=== PATIENT | male | born 1965 | race Caucasian/White ===

== ENCOUNTER 2019-03-16 06:51 | Day surgery (SDC) | payer BC, SELFPAY ==
[2019-03-15 15:38] VITALS: BMI 38.6
[2019-03-16 07:10] VITALS: BP 135/95; PULSE 63; RESP 18; TEMP 36.6; O2SAT 95
[2019-03-16] MEDS: sodium chloride 0.9% 1,000 ML 30 ML IV (07:28)
--- NOTE | 2019-03-16 07:35 | ANES.PREANES ---
Pre-Anesthetic Assessment Pre-Anesthetic Assessment: Height/Weight: Height 1.83 m Weight 129.274 kg Temp Pulse Resp BP Pulse Ox 97.8 F 63 18 135/95 95 03/16/19 07:10 03/16/19 07:10 03/16/19 07:10 03/16/19 07:10 03/16/19 07:10 Preop Diagnosis: Left dequervains Proposed Procedure: Operation Date: 03/16/19 08:00 Proposed Procedures p Dequervain Release(Left) - Anthony Dominguez MD Was Beta James taken within 24 hours: Yes Last intake: Intake Last Liquid Date 03/15/19 Last Liquid Time 21:00 Last Solid Date 03/15/19 Last Solid Time 21:00 Exam: Pre-Anes Outpt Exam: alert, oriented x 3, clear to auscultation bilaterally and regular rate & rhythm Airway: Submandibular: WNL Cervical ROM: WNL MP: 2 Additional comments: sleep apnea CV/HEM: CV/HEM: HTN Comments: rx'd 12 years GI: GI: GERD Comments: controlled with protonix, Barrettt's esophagus Metabolic: Metabolic: Thyroid Comments: replacement 5 years Musc/skel: Musc/skel: Lower Back Pain Comments: left radiculopathy Neuropsych: Neuropsych: Anxiety and Depression Meds/Allergies Current Medications: Current Medications Generic Name Dose Route Start Last Admin Trade Name Freq PRN Reason Stop Dose Admin Sodium Chloride 1,000 mls @ 30 ml s/hr 03/16/19 07:00 03/16/19 07:28 Sodium Chloride 0.9% IV 03/17/19 06:59 30 mls/hr .Q24H AYAKA Administration PFSH Anesthesia PFSH: Social History (Updated 03/15/19 @ 15:31 by Adriana Fonseca) Smoking and tobacco status: never smoked Data Anesthesia Cardiac Studies: No Data to Display
--- NOTE | 2019-03-16 07:55 | PM.HPUD ---
H&P update H&P Update: DATE OF SURGERY/PROCEDURE: 03/16/19 DATE H&P PERFORMED: 02/28/19 H&P UPDATE INFORMATION: H&P completed within last 30 days and No changes to prior documentation CHANGES TO PREVIOUS DOCUMENTATION: None PREOP DIAGNOSIS: De Quervain's tenosynovitis left wrist PRIMARY INDICATION FOR PROCEDURE: Left wrist pain with failure to improve after injections and splinting PLANNED PROCEDURE: Operation Date: 03/16/19 08:00 Proposed Procedures p Dequervain Release(Left) - Anthony Dominguez MD Full H&P Medications/Allergies: Current Medications: Current Medications Generic Name Dose Route Start Last Admin Trade Name Freq PRN Reason Stop Dose Admin Sodium Chloride 1,000 mls @ 30 ml s/hr 03/16/19 07:00 03/16/19 07:28 Sodium Chloride 0.9% IV 03/17/19 06:59 30 mls/hr .Q24H AYAKA Administration Perinent History: Social History: Social History Smoking and tobacco status: never smoked
--- NOTE | 2019-03-16 08:45 | PM.OP ---
Operative Report Date of procedure: 03/16/19 Pre-op Diagnosis: De Quervain's tenosynovitis left wrist Post-op diagnosis: same Post-op Findings: None Procedure Done: Release first extensor compartment left wrist Pathology: none sent Anesthesia: General Estimated blood loss (mL): 0 Tourniquet time (min): 14 Complications: None Findings: No abnormalities were seen within the first extensor compartment of the left wrist Brief History: The patient is a 53-year-old male with de Quervain's tenosynovitis. He failed splinting and injections with persistent pain. Surgical release was chosen to improve pain and function Procedure: The patient was taken to the operating room and given a general anesthesia. A timeout was performed. His left wrist and forearm were prepped and draped in the usual fashion. A transverse incision was made approximately 1.5 cm over the tip of the radial styloid. Dissection was carried down bluntly retracting branches of the radial nerve of volarly. The first extensor compartment of the wrist was exposed distally. Utilizing scissors central incision was made over the ligament freeing a prominent branch of the extensor pollicis brevis. This tendon was then retracted out of the sheath revealing 2 smaller branches of the abductor pollicis longus tendon which were similarly freed. No additional tendinous tunnels or aberrant tenderness branches were identified. The skin edges were infiltrated with 7 cc of 0.5% Marcaine and the skin closed with interrupted Prolene suture. Xeroflo gauze, 4 x 4 fluffs, web roll and an Wally wrap were applied.
[2019-03-16 08:53] VITALS: BP 156/101; PULSE 77; RESP 20; TEMP 37.6; O2SAT 93
[2019-03-16 09:00] VITALS: BP 124/87; PULSE 71; RESP 14; O2SAT 96
[2019-03-16 09:05] VITALS: BP 130/88; PULSE 68; RESP 18; TEMP 36.6; O2SAT 95
[2019-03-16 09:25] VITALS: BP 152/94; PULSE 75; RESP 18; O2SAT 92
[2019-03-16] MEDS: oxyCODONE 5 mg IR Tab/Cap PO (09:33)
[2019-03-16 09:46] VITALS: BP 147/93; PULSE 68; RESP 18; O2SAT 93
== END 2019-03-16 09:52 | disposition home or self-care (01) ==
PROVIDERS: Family Provider Nurse Practitioner Family; PCP Nurse Practitioner Family; Visit Provider Orthopaedic Surgery
PROC: (CPT 25000; principal; 2019-03-16 08:00)
DX: M65.4 Radial styloid tenosynovitis [de Quervain] (principal); Z79.1 Long term (current) use of non-steroidal anti-inflammatories (NSAID)
CPT/HCPCS: 25000; 12345; 96365; J0330; J0690; J2405; J2704; J3010; J3490; J7030

== ENCOUNTER → 2019-04-15 09:48 | Outpatient (BNVA) | payer BC, SELFPAY | PROVIDERS: Family Provider Nurse Practitioner Family; PCP Nurse Practitioner Family; Visit Provider Psychiatry & Neurology Psychiatry | DX: F33.9 Major depressive disorder, recurrent, unspecified (principal); G47.33 Obstructive sleep apnea (adult) (pediatric) | CPT/HCPCS: 99214 ==

== ENCOUNTER → 2019-05-05 11:35 | Outpatient (BNVA) | payer BC, SELFPAY | PROVIDERS: Family Provider Nurse Practitioner Family; PCP Nurse Practitioner Family; Visit Provider Nurse Practitioner Family | DX: J01.90 Acute sinusitis, unspecified (principal); I10 Essential (primary) hypertension; E03.9 Hypothyroidism, unspecified | CPT/HCPCS: 80053; 84443; 85025 ==

== ENCOUNTER → 2019-05-13 12:44 | Outpatient (BNVA) | payer BC, SELFPAY | PROVIDERS: Family Provider Nurse Practitioner Family; PCP Nurse Practitioner Family; Visit Provider Psychiatry & Neurology Psychiatry | DX: F33.0 Major depressive disorder, recurrent, mild (principal); G47.33 Obstructive sleep apnea (adult) (pediatric) | CPT/HCPCS: 99213 ==

== ENCOUNTER → 2019-07-08 07:32 | Outpatient (BNVA) | payer BC, SELFPAY | PROVIDERS: Family Provider Nurse Practitioner Family; PCP Nurse Practitioner Family; Visit Provider Psychiatry & Neurology Psychiatry | DX: F33.0 Major depressive disorder, recurrent, mild (principal); G47.33 Obstructive sleep apnea (adult) (pediatric) | CPT/HCPCS: 99213 ==

== ENCOUNTER → 2019-08-02 13:25 | Outpatient (BNVA) | payer BC, SELFPAY | PROVIDERS: Family Provider Nurse Practitioner Family; PCP Nurse Practitioner Family; Visit Provider Orthopaedic Surgery | DX: M25.469 Effusion, unspecified knee (principal); M25.569 Pain in unspecified knee | CPT/HCPCS: 80500; 84560; 89050 ==

== ENCOUNTER → 2019-08-03 07:25 | Outpatient (BNVA) | payer BC, SELFPAY | PROVIDERS: Family Provider Nurse Practitioner Family; PCP Nurse Practitioner Family; Visit Provider Psychiatry & Neurology Psychiatry | DX: F33.42 Major depressive disorder, recurrent, in full remission (principal) | CPT/HCPCS: 99213 ==

== ENCOUNTER → 2019-10-03 10:38 | Outpatient (BNVA) | payer BC, SELFPAY | PROVIDERS: Family Provider Nurse Practitioner Family; PCP Nurse Practitioner Family; Visit Provider Nurse Practitioner Family | DX: I10 Essential (primary) hypertension (principal); E78.2 Mixed hyperlipidemia; E03.9 Hypothyroidism, unspecified; E83.42 Hypomagnesemia; R11.0 Nausea; E16.2 Hypoglycemia, unspecified | CPT/HCPCS: 80053; 80061; 81003; 82306; 83036; 83735; 84443; 85025 ==

== ENCOUNTER → 2019-10-14 07:41 | Outpatient (BNVA) | payer BC, SELFPAY | PROVIDERS: Family Provider Nurse Practitioner Family; PCP Nurse Practitioner Family; Visit Provider Psychiatry & Neurology Psychiatry | DX: F33.42 Major depressive disorder, recurrent, in full remission (principal) | CPT/HCPCS: 99213 ==

== ENCOUNTER → 2019-10-25 09:58 | Outpatient (BNVA) | payer BC, SELFPAY | PROVIDERS: Family Provider Nurse Practitioner Family; PCP Nurse Practitioner Family; Visit Provider Nurse Practitioner Family | DX: Z20.828 Contact with and (suspected) exposure to other viral communicable diseases (principal) | CPT/HCPCS: 87635 ==

== ENCOUNTER → 2019-10-28 11:46 | Outpatient (BNVA) | payer BC, SELFPAY | PROVIDERS: Family Provider Nurse Practitioner Family; PCP Nurse Practitioner Family; Visit Provider Nurse Practitioner Family | DX: R53.83 Other fatigue (principal); R11.0 Nausea; Z12.5 Encounter for screening for malignant neoplasm of prostate; Z20.828 Contact with and (suspected) exposure to other viral communicable diseases; E03.9 Hypothyroidism, unspecified; R94.4 Abnormal results of kidney function studies; I10 Essential (primary) hypertension; E66.01 Morbid (severe) obesity due to excess calories; Z68.41 Body mass index [BMI] 40.0-44.9, adult | CPT/HCPCS: 80053; 83550; 84402; 84403; 86000; 86618; 86666; 86757; G0103 ==

== ENCOUNTER → 2019-12-09 16:39 | Outpatient (BNVA) | payer BC, SELFPAY | PROVIDERS: Family Provider Nurse Practitioner Family; PCP Nurse Practitioner Family; Visit Provider Nurse Practitioner Family | DX: S66.911A Strain of unspecified muscle, fascia and tendon at wrist and hand level, right hand, initial encounter (principal); X58.XXXA Exposure to other specified factors, initial encounter; R07.9 Chest pain, unspecified; R07.81 Pleurodynia | CPT/HCPCS: 71046; 73130 ==

== ENCOUNTER → 2019-12-23 07:30 | Outpatient (BNVA) | payer BC, SELFPAY | PROVIDERS: Family Provider Nurse Practitioner Family; PCP Nurse Practitioner Family; Visit Provider Psychiatry & Neurology Psychiatry | DX: F33.42 Major depressive disorder, recurrent, in full remission (principal); G47.33 Obstructive sleep apnea (adult) (pediatric) | CPT/HCPCS: 99213 ==

== ENCOUNTER → 2020-03-12 10:37 | Outpatient (BNVA) | payer BC, SELFPAY | PROVIDERS: Family Provider Nurse Practitioner Family; PCP Nurse Practitioner Family; Visit Provider Internal Medicine | DX: Z01.812 Encounter for preprocedural laboratory examination (principal); Z11.59 Encounter for screening for other viral diseases | CPT/HCPCS: 87635 ==

== ENCOUNTER 2020-03-16 09:06 | Day surgery (SDC) | payer BC, SELFPAY ==
[2020-03-16 09:20] VITALS: BP 138/96; PULSE 70; RESP 18; TEMP 36.1; O2SAT 97
--- NOTE | 2020-03-16 09:22 | P.HP_ITS ---
Same Day Surgery H&P Indication for Procedure/HPI DATE OF PROCEDURE: March 16, 2020 CHIEF COMPLAINT/INDICATIONFOR SURGICAL PROCEDURE: History of Armstrong's esophagus, and history of colon polyps. PREOP DIAGNOSIS: De Quervain's tenosynovitis left wrist PLANNED PROCEDRUE: Operation Date: 03/16/20 10:00 Proposed Procedures p EGD 30365 75771 K22.70 K63.5(Not Applicable) - Darrick Norman MD s Colonoscopy(Not Applicable) - Darrick Norman MD Medications/Allergies* Home Medications Medication Instructions Recorded Confirmed Type hydrochlorothiazide 12.5 mg capsule 12.5 mg PO QAM 02/28/19 03/16/20 History sumatriptan succinate 100 mg tablet 100 mg PO ONCE PRN 02/28/19 03/16/20 History Allergies/Adverse Reactions Allergy/AdvReac Type Severity Reaction Status Date / Time acetaminophen [From Lortab] Allergy ADR-Nausea Verified 02/21/20 09:03 codeine Allergy ADR-Nausea Verified 02/21/20 09:03 hydrocodone [From Lortab] Allergy ADR-Nausea Verified 02/21/20 09:03 nalbuphine [From Nubain] Allergy Unconscious Verified 02/21/20 09:03 sulfamethoxazole Allergy ADR-Nausea Verified 02/21/20 09:03 [From Bactrim] trimethoprim [From Bactrim] Allergy ADR-Nausea Verified 02/21/20 09:03 Pertinent History/Comorbid Conditions* Medical History (Updated 02/21/20 @ 09:48 by Darrick Norman MD) Barretts esophagus Last EGD August 2018 - to repeat in 3 years Chest pain Colon polyps Last Colonoscopy 2014, repeat in 5 years - Due 2020 Fatigue Hand strain Hypertension Hypomagnesemia Hypothyroid Mixed hyperlipidemia Morbid obesity with BMI of 40.0-44.9, adult Nausea Obstructive sleep apnea Osteoarthritis Prostate cancer screening Rib pain on right side [place] tick fever Sinusitis Tick bite Vitamin D deficiency Surgical History (Updated 10/31/19 @ 15:25 by HENRIETTA Osorio) H/O esophagogastroduodenoscopy EGD August 2018 repeat in 3 years (August 2021) H/O nasal sinusotomy Hx of cholecystectomy Social History Smoking and tobacco status: never smoked Alcohol intake: never Marital status: service: No History of recent travel: No Pertinent Exam Findings alert, oriented x 3, clear to auscultation bilaterally, regular rate & rhythm, operative site marked and procedure specific exam findings Recommendations Surgery/Procedure today Coding Level of Care Code Acute Vascular Ultrasound Technologist for Nicole Lowery
[2020-03-16] MEDS: sodium chloride 0.9% 1,000 ML 30 ML IV (09:30)
[2020-03-16 09:41] VITALS: BMI 43.6
--- NOTE | 2020-03-16 09:42 | ANES.PREANE2 ---
Pre-Anesthetic Assessment Pre-Anesthetic Assessment: Height/Weight: Height 1.8 m Weight 141.974 kg Temp Pulse Resp BP Pulse Ox 97 F L 70 18 138/96 97 03/16/20 09:20 03/16/20 09:20 03/16/20 09:20 03/16/20 09:20 03/16/20 09:20 Preop Diagnosis: nav's esophagus Proposed Procedure: Operation Date: 03/16/20 10:00 Proposed Procedures p EGD [id number] K22.70 K63.5(Not Applicable) - Darrick Norman MD s Colonoscopy(Not Applicable) - Darrick Norman MD Familial anesthetic complications: none Was Beta James taken within 24 hours: Yes Last intake: Intake Last Liquid Date 03/15/20 Last Liquid Time 22:00 Last Solid Date 03/14/20 Last Solid Time 19:30 Social: Social History: No alcohol and No tobacco Exam: Pre-Anes Outpt Exam: alert, oriented x 3, clear to auscultation bilaterally and regular rate & rhythm Airway: Cervical ROM: WNL MP: 1 Dentition: Chipped (bottom back) Additional comments: large tongue and large neck circumference Pulmonary: Pulmonary: Sleep apnea CV/HEM: CV/HEM: HTN GI: GI: GERD Metabolic: Metabolic: Morbid obesity and Thyroid Anesthetic Plan: ASA status: 3 Anesthesia: MAC Risk of > 500 ml blood loss (7ml/kg in children): No PFSH Anesthesia PFSH: Medical History (Updated 02/21/20 @ 09:48 by Darrick Norman MD) Barretts esophagus Last EGD August 2018 - to repeat in 3 years Chest pain Colon polyps Last Colonoscopy 2014, repeat in 5 years - Due 2020 Fatigue Hand strain Hypertension Hypomagnesemia Hypothyroid Mixed hyperlipidemia Morbid obesity with BMI of 40.0-44.9, adult Nausea Obstructive sleep apnea Osteoarthritis Prostate cancer screening Rib pain on right side [place] tick fever Sinusitis Tick bite Vitamin D deficiency Surgical History H/O esophagogastroduodenoscopy EGD August 2018 repeat in 3 years (August 2021) H/O nasal sinusotomy Hx of cholecystectomy Social History (Updated 02/21/20 @ 09:07 by BETHANIE Reza) Smoking and tobacco status: never smoked Alcohol intake: never Marital status: service: No History of recent travel: No Data Anesthesia Cardiac Studies: No Data to Display
[2020-03-16 11:11] VITALS: BP 144/94; PULSE 67; RESP 18; TEMP 36.1; O2SAT 96
[2020-03-16 11:23] VITALS: BP 139/86; PULSE 65; RESP 18; TEMP 36.3; O2SAT 96
--- NOTE | 2020-03-16 14:42 | ANE.PACU2 ---
Inpatient post-anesthesia follow up: Airway intact: Yes Vital signs: Temperature 97.3 F Pulse Rate 65 Respiratory Rate 18 Blood Pressure 139/86 Pulse Oximetry 96 Oxygen Delivery Me thod Room Air Oxygen Flow Rate Fraction of Inspir ed Oxygen Hydration adequate: Yes Nausea and vomiting: No Pain level: 1 Mental status: Baseline
== END 2020-03-16 11:47 | disposition home or self-care (01) ==
PROVIDERS: PCP Nurse Practitioner Family; Visit Provider Internal Medicine
PROC: 0DJ08ZZ Inspection of Upper Intestinal Tract, Via Natural or Artificial Opening Endoscopic (ICD-10-PCS; CPT 43235; principal; 2020-03-16 10:00)
PROC: 0DJD8ZZ Inspection of Lower Intestinal Tract, Via Natural or Artificial Opening Endoscopic (ICD-10-PCS; CPT 45378; 2020-03-16 10:00)
DX: K63.5 Polyp of colon (principal); K22.70 Barrett's esophagus without dysplasia; Z86.010 Personal history of colon polyps; I10 Essential (primary) hypertension; K21.9 Gastro-esophageal reflux disease without esophagitis; E66.01 Morbid (severe) obesity due to excess calories; Z68.41 Body mass index [BMI] 40.0-44.9, adult; E03.9 Hypothyroidism, unspecified; E78.2 Mixed hyperlipidemia; G47.33 Obstructive sleep apnea (adult) (pediatric); M19.90 Unspecified osteoarthritis, unspecified site
CPT/HCPCS: 12345; 43239; 45385; 88305; J7030

== ENCOUNTER → 2020-03-23 07:39 | Outpatient (BNVA) | payer BC, SELFPAY | PROVIDERS: PCP Nurse Practitioner Family; Visit Provider Psychiatry & Neurology Psychiatry | DX: F33.42 Major depressive disorder, recurrent, in full remission (principal); G47.33 Obstructive sleep apnea (adult) (pediatric) | CPT/HCPCS: 99213 ==

== ENCOUNTER → 2020-06-14 08:08 | Outpatient (BNVA) | payer BC, SELFPAY | PROVIDERS: PCP Nurse Practitioner Family; Visit Provider Psychiatry & Neurology Psychiatry | DX: F33.42 Major depressive disorder, recurrent, in full remission (principal); G47.33 Obstructive sleep apnea (adult) (pediatric) | CPT/HCPCS: 99213 ==

== ENCOUNTER → 2020-07-20 10:02 | Outpatient (BNVA) | payer BC, SELFPAY | PROVIDERS: PCP Nurse Practitioner Family; Visit Provider Nurse Practitioner Family | DX: I10 Essential (primary) hypertension (principal); E78.2 Mixed hyperlipidemia; E83.42 Hypomagnesemia; Z12.5 Encounter for screening for malignant neoplasm of prostate; E03.9 Hypothyroidism, unspecified; E55.9 Vitamin D deficiency, unspecified; Z79.899 Other long term (current) drug therapy; W57.XXXA Bitten or stung by nonvenomous insect and other nonvenomous arthropods, initial encounter | CPT/HCPCS: 85025 ==

== ENCOUNTER → 2020-07-20 11:54 | Outpatient (BNVA) | payer BC, SELFPAY | PROVIDERS: PCP Nurse Practitioner Family; Visit Provider Nurse Practitioner Family | DX: E55.9 Vitamin D deficiency, unspecified (principal); W57.XXXA Bitten or stung by nonvenomous insect and other nonvenomous arthropods, initial encounter; I10 Essential (primary) hypertension; E78.2 Mixed hyperlipidemia; E03.9 Hypothyroidism, unspecified; Z79.899 Other long term (current) drug therapy; Z12.5 Encounter for screening for malignant neoplasm of prostate; X58.XXXA Exposure to other specified factors, initial encounter | CPT/HCPCS: 80053; 80061; 82306; 83036; 83735; 84443; G0103 ==

== ENCOUNTER → 2020-09-17 08:48 | Outpatient (BNVA) | payer BC, SELFPAY | PROVIDERS: PCP Nurse Practitioner Family; Visit Provider Internal Medicine Rheumatology | DX: M19.90 Unspecified osteoarthritis, unspecified site (principal); M54.89 Other dorsalgia; Z79.899 Other long term (current) drug therapy; Z11.59 Encounter for screening for other viral diseases; Z11.1 Encounter for screening for respiratory tuberculosis; Z71.89 Other specified counseling | CPT/HCPCS: 99204 ==

== ENCOUNTER 2020-09-17 10:31 | Outpatient (CLI) | payer BC, SELFPAY ==
--- NOTE | 2020-09-17 10:51 | XR_ITS ---
WS: [id number] XR chest 2V* [id number] REASON FOR EXAM: Z79.899 - Other penitentiary (current) drug therapy FINDINGS: Mild tortuosity of the thoracic aorta. Normal heart size. No active pulmonary parenchymal or pleural disease. XR/XR chest 2V* [id number] IMPRESSION: No acute chest abnormality. Chest unchanged compared to 12/09/2019.
--- NOTE | 2020-09-17 10:51 | XR_ITS ---
WS: [id number] XR foot LT min 3V* [id number] REASON FOR EXAM: Z79.899 - Other retirement (current) drug therapy FINDINGS: No diffuse or focal bone abnormality. The joint spaces of the forefoot, midfoot, and hindfoot are relatively well preserved with no subchon dral abnormality or malalignment. Small enthesophytes from the calcaneus at the insertion of the plantar fascia and Achilles tendon. XR/XR foot LT min 3V* [id number] IMPRESSION: No significant abnormality.
--- NOTE | 2020-09-17 10:51 | XR_ITS ---
WS: [id number] XR sacroiliac jts m 3V [id number] REASON FOR EXAM: Z79.899 - Other long-term (current) drug therapy FINDINGS: The sacroiliac joints are narrowed and somewhat indistinct. There may be partially fused. There are large acetabular spurs and spurring of both femoral necks. There are multiple enthesophytes involving the trochanters and iliac wings and pubic bones. No focal bone lesion is identified. No soft tissue abnormality is noted. XR/XR sacroiliac jts m 3V [id number] IMPRESSION: Abnormal appearing sacroiliac joints as above. The other bony findings are indicative of diffuse idiopathic skeletal hyperosto sis(DISH)
--- NOTE | 2020-09-17 10:51 | XR_ITS ---
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 Mild/moderate narrowing of the medial knee joint space similar to the right side with weightbearing. Subchondral sclerosis in the tibia and fibula. Lateral knee joint space is intact. Spurring from the articular margins of the patella. Enthesophytes at the attachments of the quadricep s and infrapatellar tendons on the patella. XR/XR knee LT 3V* [id number] IMPRESSION: Degenerative arthropathic changes as above.
--- NOTE | 2020-09-17 10:51 | XR_ITS ---
WS: [id number] XR lumbar spine 2-3V* [id number] REASON FOR EXAM: Z79.899 - Other retirement (current) drug therapy FINDINGS: Mild rotatory scoliosis of the lumbar spine. Mild to moderate narrowing of the intervertebral disc spaces L1-S1. Large anterior flowing osteophyte formation. Hypertrophic degenerative changes in the facet joints at L2-S1. XR/XR lumbar spine 2-3V* [id number] IMPRESSION: Lumbar degenerative disc disease as above. Hyperostosis findings again noted.
[2020-09-17 12:40] LABS: C Reactive Protein 10.8 mg/L (0.0-4.9); Uric Acid 4.6 mg/dL (3.4-7.0)
[2020-09-17 13:14] LABS: Hepatitis B Core AB, Total Non-Reactive (Nonreactive); Hepatitis B Surface Antigen Non-Reactive (Nonreactive); Hepatitis C Virus Antibody Non-Reactive (Nonreactive)
[2020-09-17 13:51] LABS: Erythrocyte Sedimentation Rate 24 mm/hr (0-10)
[2020-09-19 15:06] LABS: Quantiferon Mitogen >10.00 IU/mL; Quantiferon Nil 0.02 IU/mL; Quantiferon TB Gold NEGATIVE (NEGATIVE)
[2020-09-19 16:37] LABS: HLA-B27 NEGATIVE (NEGATIVE)
== END 2020-09-17 10:32 | disposition home or self-care (01) ==
PROVIDERS: PCP Nurse Practitioner Family; Visit Provider Internal Medicine Rheumatology
DX: M19.90 Unspecified osteoarthritis, unspecified site (principal); M45.9 Ankylosing spondylitis of unspecified sites in spine; Z79.899 Other long term (current) drug therapy; Z11.59 Encounter for screening for other viral diseases; Z11.1 Encounter for screening for respiratory tuberculosis
CPT/HCPCS: 36415; 71046; 72100; 72202; 73562; 73630; 84439; 84550; 85651; 86140; 86480; 86704; 86803; 86812; 87340

== ENCOUNTER 2020-10-23 07:25 | Outpatient (CLI) | payer BC, SELFPAY ==
--- NOTE | 2020-10-23 08:45 | MR_ITS ---
WS: [id number] MRI LUMBAR SPINE NONCONTRAST HISTORY: Back stiffness and sacral pain. COMPARISON: None available. TECHNIQUE: Sagittal and axial multisequence imaging is submitted. Cervical spine demonstrates a disc protrusion and/or osteophyte at C2-3 with encroachment upon the ve ntral cervical cord. Disc demonstrates cephalad migration posterior to C2. Otherwise moderate degener ative disc disease and osteophytosis in the cervical and thoracic spines. T12 hemangioma. Mild straightening of the normal lumbar lordosis. No marrow edema or fracture. Disc spaces and vertebral body heights are well-preserved. Conus terminates normally at L1-2 disc level. L1-L2: Normal. L2-L3: Mild ligamentum flavum disease and facet arthritis. No stenosis. L3-L4: Moderate ligamentum flavum hypertrophy and facet arthritis. Facet arthritis causing encroachme nt into the foramen. Mild LEFT and moderate RIGHT foraminal stenosis. L4-L5: Moderate facet and ligamentum flavum hypertrophy. No central stenosis. Mild LEFT and moderate RIGHT foraminal stenosis. L5-S1: Mild annular disc bulging. Mild facet and ligamentum flavum arthritis. Very mild foraminal po rowing. MR/MR lumbar spine wo con* [id number] IMPRESSION: 1. No lumbar spine fracture or high-grade stenosis. 2. Moderate RIGHT and mild LEFT foraminal stenosis at L3-4 and L4-5 predominan tly due to ligamentum flavum and facet arthritis. 3. Focal disc extrusion at C2-3 extends cephalad from the disc and encroaches upon the ventral cervical cord.
== END 2020-10-23 07:26 | disposition home or self-care (01) ==
LOC: RADSHAW 07:31
PROVIDERS: PCP Nurse Practitioner Family; Visit Provider Internal Medicine Rheumatology
DX: M54.89 Other dorsalgia (principal)
CPT/HCPCS: 72148

== ENCOUNTER → 2020-11-06 14:53 | Outpatient (BNVA) | payer BC, SELFPAY | PROVIDERS: PCP Nurse Practitioner Family; Visit Provider Internal Medicine Rheumatology | DX: M19.90 Unspecified osteoarthritis, unspecified site (principal); M45.9 Ankylosing spondylitis of unspecified sites in spine; Z79.899 Other long term (current) drug therapy; Z71.89 Other specified counseling | CPT/HCPCS: 99214 ==

== ENCOUNTER → 2020-12-07 10:49 | Outpatient (BNVA) | payer BC, SELFPAY | PROVIDERS: PCP Nurse Practitioner Family; Visit Provider Nurse Practitioner Family | DX: M19.90 Unspecified osteoarthritis, unspecified site (principal); Z79.899 Other long term (current) drug therapy | CPT/HCPCS: 80076; 82565; 85025; 86140 ==

== ENCOUNTER → 2021-03-05 16:32 | Outpatient (BNVA) | payer BC, SELFPAY | PROVIDERS: PCP Nurse Practitioner Family; Visit Provider Nurse Practitioner Family | DX: J01.40 Acute pansinusitis, unspecified (principal); R68.89 Other general symptoms and signs; Z20.822 Contact with and (suspected) exposure to COVID-19 | CPT/HCPCS: 87400; 87635 ==

== ENCOUNTER 2021-03-09 19:34 | Emergency (ER) | payer BC, SELFPAY ==
[2021-03-09 19:42] VITALS: BP 150/76; PULSE 101; RESP 16; TEMP 37.2; O2SAT 99
--- NOTE | 2021-03-09 19:53 | ECG_ITS ---
[facility] Test Date: 2021-03-09 Pat Name: Min Watson Department: Room: Gender: Male Solution Manager: : 1965 Requested By: Sushil Barcenas Order Number: [id number] Reading MD: RACHEL GOODE Measurements Intervals [place] Rate: 102 P: 58 AR: 185 QRS: 57 QRSD: 87 T: 58 QT: 321 QTc: 419 Interpretive Statements SINUS TACHYCARDIA ABNORMAL RHYTHM ECG No previous ECG available for comparison Electronically Signed On 03-10-2021 17:47:45 STRATEGIC PLANNING ANALYST by RACHEL GOODE [id number]
--- NOTE | 2021-03-09 19:53 | XRR_ITS ---
PROCEDURE INFORMATION: Exam: XR Abdomen Exam date and time: 03/09/2021 7:53 PM Age: 55 years old Clinical indication: Abdominal pain; Generalized; Prior surgery; Surgery date: 6+ months; Surgery type: Gb; Additional info: Pain, portable TECHNIQUE: Imaging protocol: XR of the abdomen. Views: Frontal supine view of the abdomen. 1 View. COMPARISON: CT Abdomen/Pelvis Renal [id number] 08/20/2015 2:15 PM FINDINGS: Gastrointestinal tract: Normal. No bowel dilation. Bones/joints: Unremarkable. XR/XR abdomen 1V* [id number] IMPRESSION: No acute findings.
--- NOTE | 2021-03-09 19:54 | XRR_ITS ---
PROCEDURE INFORMATION: Exam: XR Chest Exam date and time: 03/09/2021 7:54 PM Age: 55 years old Clinical indication: Dyspnea; Additional info: Abd pain TECHNIQUE: Imaging protocol: XR of the chest. Views: 1 view. COMPARISON: CR XR chest 2V* [id number] 09/17/2020 11:04 AM FINDINGS: Lungs: Unremarkable. No consolidation. Pleural spaces: Unremarkable. No pleural effusion. No pneumothorax. Heart/Mediastinum: Unremarkable. No cardiomegaly. Bones/joints: Unremarkable. XR/XR chest 1V portable [id number] IMPRESSION: No acute findings.
--- NOTE | 2021-03-09 19:56 | W.ED.ABDPA2 ---
HPI - Abdominal Pain General: Chief Complaint: Abdominal Pain Stated Complaint: passed out at home, SOB, Bloating Time Seen by Provider: 03/09/21 19:45 Source: patient and family Mode of arrival: ambulatory Limitations: no limitations History of Present Illness: HPI narrative: Patient states he has upper abdominal pain bilaterally for the past 3 days. States she has not felt well for the past 5 days and had a fever intermittently since Thursday. States he has had diarrhea intermittently for about 5 days. He denies any blood in his stool. States he was tested for COVID and the flu on Thursday at a local clinic but does not know the results of those tests. He states he was sitting on the floor and having his head rubbed by family member and he states he passed out after becoming diaphoretic and dizzy. Denies any chest pain or shortness of breath. He states he has been vaccinated for COVID and did have a booster. Denies being vaccinated for the flu. Possible history includes GERD, Armstrong's esophagus, peptic ulcer disease. Patient is also had a history of syncope with episodes of nausea and vomiting. He was told he had vasovagal syncope. He states Bactrim and hydrocodone make him nauseated. He states he is allergic to Nubain also. Past surgical history includes cholecystectomy. He denies any other abdominal surgery. Does not smoke or drink alcohol. MD elicited complaint: abdominal pain Pertinent past history: gastritis Pain Consistency: constant Location: Epigastric, LUQ and RUQ Severity: moderate Quality: aching Radiation: bilateral flank Exacerbating factors: nothing Relieving factors: nothing Associated Symptoms: Reports bloating, GI cramping, diarrhea, fever(s) and loose stools; Denies constipation, hematochezia, hematuria, hematemesis, melena, nausea, syncope and vomiting Review of Systems Const: Reports: fever(s) and diaphoresis Eyes: Denies: change in vision ENMT: Denies: throat pain Card: Denies: chest pain, palpitations, edema or syncope Resp: Denies: dyspnea, productive cough, non-productive cough, wheezing or pain on inspiration GI: Reports: abdominal pain, diarrhea, bloating and GI cramping; Denies: nausea, vomiting, hematemesis, constipation, hematochezia or melena : Reports: flank pain; Denies: difficulty urinating or hematuria Musc: Reports: back pain; Denies: neck pain, extremity pain, extremity swelling or joint pain Skin/Breast: Denies: rash or pruritus Neuro: Denies: headache(s) or numbness in extremities Psych: Denies: anxiety Fabian/Lymph: Denies: enlarged lymph nodes PFSH ED PFSH: Medical History Ankylosing spondylitis Barretts esophagus Last EGD August 2018 - to repeat in 3 years Changing pigmented skin lesion Chest pain Colon polyps Last Colonoscopy 2020, repeat in 5 years - Due 2025 Fatigue Hand strain High risk medication use Hypertension Hypomagnesemia Hypothyroid Immunization counseling Inflammatory arthritis Inflammatory back pain Medication management Mixed hyperlipidemia Morbid obesity with BMI of 40.0-44.9, adult Nausea Neck pain Obstructive sleep apnea Osteoarthritis Prostate cancer screening Psychiatric care Rib pain on right side [place] tick fever Sinusitis Sinusitis, acute Sinusitis, acute Tick bite Vitamin D deficiency Surgical History H/O esophagogastroduodenoscopy EGD August 2018 repeat in 3 years (August 2021) H/O nasal sinusotomy Hx of cholecystectomy Social History Smoking and tobacco status: never smoked Alcohol intake: never Marital status: service: No History of recent travel: No Physical Exam Const: COMMON NORMALS: no acute distress, patient oriented x3, no limitations and well nourished EXAM LIMITATIONS: no altered mental status GENERAL APPEARANCE: cooperative NUTRITIONAL APPEARANCE: obese OTHER: mild malaise HENMT: COMMON NORMALS: normocephalic and atraumatic HEAD & SCALP: normocephalic and atraumatic FACE & SINUS: normal facial exam Eye: COMMON NORMALS: EOMs intact bilaterally Neck/C-Spine: COMMON NORMALS: full ROM, no lymphadenopathy, supple, no meningeal signs and no JVD GENERAL: Yes normal visual inspection Lymph: LYMPHATIC: no lymphadenopathy noted Chest: COMMONS NORMALS: normal inspection of the chest and normal palpation of entire chest wall CHEST: No Ecchymosis present and No rash Resp: COMMON NORMALS: normal respiratory effort, No retractions, No use of accessory muscles and clear to auscultation bilaterally EFFORT & INSPECTION: No respiratory distress AUSCULTATION: clear to auscultation bilaterally Cardio: COMMON NORMALS: no JVD, regular rate, regular rhythm and Peripheral pulses 2+ throughout JUGULAR VENOUS DISTENTION: no JVD RATE: regular rate RHYTHM: regular rhythm PERIPHERAL PULSES: Peripheral pulses 2+ throughout GI: COMMON NORMALS: Normal to inspection, nondistended, normoactive bowel sounds present, Soft to palpation and No hepatosplenomegaly present PALPATION: Yes Soft to palpation, Yes Tenderness to palpation present (GI) Details: LUQ, RUQ and other (epigastric; mild), Yes No hepatosplenomegaly present, No Pulsatile mass present and No Ascites present : COMMON NORMALS: Yes no CVA tenderness BLADDER/KIDNEY EXAM: Yes no CVA tenderness Back/Pelvis: COMMON NORMALS: no CVA tenderness Extremity: COMMON NORMALS: normal to inspection, full ROM and capillary refill normal Neuro: COMMON NORMALS: patient oriented x3, CN's II-XII intact bilaterally, no focal motor deficits and no sensory deficits noted MENINGEAL SIGNS: Yes no meningeal signs Psych: COMMON NORMALS: mental status grossly normal and Normal thought process present THOUGHT PROCESS: Normal thought process present Skin: COMMON NORMALS: no rashes or lesions noted, no wounds and no jaundice GENERAL SKIN EXAM: no rashes or lesions noted Course Vital Signs: Vital signs: Vital Signs Temperature 99.0 F 03/09/21 19:42 Pulse Rate 101 H 03/09/21 19:42 Respiratory Rate 16 03/09/21 19:42 Blood Pressure 150/76 03/09/21 19:42 Pulse Oximetry 99 03/09/21 19:42 MDM - Abdominal Pain MDM Narrative: Medical decision making narrative: 2114: Patient was feeling much better. We will proceed with a CT scan of the abdomen to rule out pathology. Differential Diagnosis: Differential diagnosis abdominal pain: Likely abdominal pain, diverticulitis, gastroenteritis and pancreatitis Lab Data: Attestation: I reviewed the patient's lab results. Lab results narrative: Second hour troponin is unchanged. Labs: Lab Results 03/09/21 03/09/21 03/09/21 20:24 20:24 20:24 WBC 4.1 10^3/uL 10^3/ uL (4.0-10.0) RBC 5.03 10^6/uL 10^6 /uL (4.1-5.3) Hgb 14.3 g/dL g/dL (11.7-16.6) Hct 43.2 % % (42.0-52.0) MCV 85.9 fl fl (80-94) MCH 28.4 pg pg (28.0-34.0) MCHC 33.1 g/dL g/dL (30.0-36.0) RDW 16.0 % H % (12.1-15.1) Plt Count 107 10^3/cmm L 10 ^3/cmm (130-400) MPV 8.8 fL fL (7.4-10.4) Neut % (Auto) 72.4 % % Lymph % (Auto) 11.4 % % [place] % (Auto) 11.4 % % Eos % (Auto) 0.7 % % Baso % (Auto) 0.5 % % Neut # (Auto) 2.98 10^3/uL 10^3 /uL (1.8-7.7) Lymph # (Auto) 0.5 10^3/uL L 10^ 3/uL (0.8-4.8) [place] # (Auto) 0.5 10^3/uL 10^3/ uL (0.2-0.9) Eos # (Auto) 0.0 10^3/uL 10^3/ uL (0.0-0.8) Baso # (Auto) 0.0 10^3/uL 10^3/ uL (0.0-0.1) Nucleated RBC % (a uto) 0 % % Nucleated RBCs # 0.0 /100WBC /100W BC Sodium 136 mmol/L mmol/L (136-145) Potassium 3.4 mmol/L L mmol /L (3.5-5.1) Chloride 101 mmol/L mmol/L (98-107) Carbon Dioxide 20 mmol/L L mmol/ L (22-29) Anion Gap 18.4 (5-19) BUN 17 mg/dL mg/dL (6-20) Creatinine 1.2 mg/dL mg/dL (0.7-1.2) GFR Calculation 63.1 mL/min L mL/ min (90-130) Glucose 106 mg/dL mg/dL (65-115) Calculated Osmolal ity 284 mOsm/kg L mOs m/kg (285-295) Calcium 7.9 mg/dL L mg/dL (8.5-10.5) Total Bilirubin 0.6 mg/dL mg/dL (0.15-1.2) AST 23 U/L U/L (0-40) ALT 15 U/L U/L (0-41) Alkaline Phosphata se 97 IU/L IU/L (40-130) Troponin T Baselin e 17 ng/L H ng/L (0-15) Troponin T 120 Min jc Delta Troponin T Total Protein 6.3 g/dL L g/dL (6.6-8.7) Albumin 3.9 g/dL g/dL (3.5-5.2) Globulin 2.4 g/dL g/dL (1.3-4.6) Lipase 51 U/L U/L (13-60) Urine Color Urine Appearance Urine pH Ur Specific Gravit y Urine Protein Urine Glucose (UA) Urine Ketones Urine Blood Urine Nitrate Urine Bilirubin Urine Urobilinogen Ur Leukocyte Bonnie ase Urine RBC Urine WBC Ur Squamous Epith Cells Amorphous Sediment Urine Bacteria Hyaline Casts Urine Mucus 03/09/21 03/09/21 21:16 22:10 WBC RBC Hgb Hct MCV MCH MCHC RDW Plt Count MPV Neut % (Auto) Lymph % (Auto) [place] % (Auto) Eos % (Auto) Baso % (Auto) Neut # (Auto) Lymph # (Auto) [place] # (Auto) Eos # (Auto) Baso # (Auto) Nucleated RBC % (a uto) Nucleated RBCs # Sodium Potassium Chloride Carbon Dioxide Anion Gap BUN Creatinine GFR Calculation Glucose Calculated Osmolal ity Calcium Total Bilirubin AST ALT Alkaline Phosphata se Troponin T Baselin e Troponin T 120 Min jc 17.35 ng/L H ng/L (0-15) Delta Troponin T 0.35 ABS# ABS# (0-10) Total Protein Albumin Globulin Lipase Urine Color Yellow (Yellow) Urine Appearance Clear (CLEAR) Urine pH 5 (5-7) Ur Specific Gravit y 1.020 (1.005-1.030) Urine Protein Trace (Negative) Urine Glucose (UA) Norm (Normal) Urine Ketones Negative (Negative) Urine Blood 2+ H (Negative) Urine Nitrate Negative (Negative) Urine Bilirubin Neg (Negative) Urine Urobilinogen 1 mg/dL H mg/dL (Negative) Ur Leukocyte Bonnie ase Negative (Negative) Urine RBC 0-4 /hpf H /hpf (0-2) Urine WBC 0-4 /hpf H /hpf (0-5) Ur Squamous Epith Cells 0-4 /hpf H /hpf (0-5) Amorphous Sediment Not Reportable Urine Bacteria Trace /hpf /hpf (NONE) Hyaline Casts 0-4 /lpf H /lpf Urine Mucus 1+ /hpf /hpf Imaging Data ^: CXR: Attestation: I personally reviewed and interpreted this imaging study as follows: My impression: Chest x-ray shows nothing acute. No free air seen. KUB: Attestation: I personally reviewed and interpreted this imaging study as follows: My impression: KUB shows nothing acute. CT Abd/Pel: Radiologist's impression: CT Scan ReportSigned Patient: Lynn Watson #: [id number]: 1965Acct#:[id number]/Sex: 55 / MADM Date: 03/09/21Loc: ERRoom/Bed:Attending Dr: Ordering Provider/Ordering MD: Sushil Maya MD Date of Service: 03/09/21 Procedure(s): CT abdomen pelvis w con* [id number] Accession Number(s): [id number] Report Number: [id number] PROCEDURE INFORMATION: Exam: CT Abdomen And Pelvis With Contrast Exam date and time: 03/09/2021 9:17 PM Age: 55 years old Clinical indication: Abdominal pain; Localized; Prior surgery; Surgery date: 6+ months; Surgery type: Gb; Patient HX: C/O upper abd pain, fever and diarrhea x 3 days; Additional info: Upper abd pain, h/o cholecystectomy TECHNIQUE: Imaging protocol: Computed tomography of the abdomen and pelvis with contrast. Radiation optimization: All CT scans at this facility use at least one of these dose optimization techniques: automated exposure control; mA and/or kV adjustment per patient size (includes targeted exams where dose is matched to clinical indication); or iterative reconstruction. Contrast material: OMNI 300; Contrast volume: 95 ml; Contrast route: INTRAVENOUS (IV); COMPARISON: CT Abdomen/Pelvis Renal [id number] 08/20/2015 2:15 PM RADIATION DOSE METRICS: Total DLP (mGy-cm): 1769.03 FINDINGS: Liver: Normal. No mass. Gallbladder and bile ducts: Stable cholecystectomy. Pancreas: Normal. No ductal dilation. Spleen: 16.1 cm moderate splenomegaly. Adrenal glands: Normal. No mass. Kidneys and ureters: Normal. No hydronephrosis. Stomach and bowel: Unremarkable. No obstruction. No mucosal thickening. Appendix: No evidence of appendicitis. Intraperitoneal space: Unremarkable. No free air. No significant fluid collection. Vasculature: Unremarkable. No abdominal aortic aneurysm. Lymph nodes: Unremarkable. No enlarged lymph nodes. Urinary bladder: Unremarkable as visualized. Reproductive: Nonspecific prostate calcifications. Bones/joints: Large flowing multilevel hypertrophic vertebral body osteophytes consistent with diffuse idiopathic skeletal hyperostosis (DISH) syndrome. Soft tissues: Unremarkable. CT/CT abdomen pelvis w con* [id number] IMPRESSION: 1. Stable cholecystectomy. 2. 16.1 cm moderate splenomegaly. 3. No acute findings. Dictated By:Santos Manzano MDSigned By:Santos Manzano MDSigned Date/Time:03/09/212203 EKG Data ^: EKG 1: Attestation: I personally reviewed and interpreted this EKG as follows: EKG interpretation date: 03/09/21 EKG interpretation time: 20:25 Interpretation: EKG shows sinus tachycardia with a heart rate of 102. Normal axis. Normal MS interval. Normal QRS interval. Normal ST segments. Normal T waves. Normal EKG except for sinus tachycardia. EKG 2: Attestation: I personally reviewed and interpreted this EKG as follows: EKG interpretation date: 03/09/21 EKG interpretation time: 22:25 Prior EKG tracings: available for review Interpretation: EKG shows normal sinus rhythm with a heart rate of 98. Normal MS interval. Normal QRS interval. Normal QT interval. Normal ST segments. Normal T waves. Normal axis. Normal EKG. See previous EKG. Rate has improved. Discharge Plan Discharge Clinical Impression: Abdominal pain, acute, epigastric, Splenomegaly, not elsewhere classified, Thrombocytopenia due to hypersplenism Syncope Qualifiers: Syncope type: vasovagal syncope Qualified Code(s): R55 - Syncope and collapse Condition: Stable Prescriptions: No Action sumatriptan succinate [Imitrex] 100 mg tablet 100 mg PO ONCE PRN (Reason: headache) RF: 0 hydrochlorothiazide 12.5 mg capsule 12.5 mg PO QAM RF: 0 tramadol 50 mg tablet 50 mg PO BID PRN (Reason: pain) 15 Days Qty: 30 RF: 0 alprazolam 0.5 mg tablet 0.5 mg PO TID Qty: 90 RF: 5 bupropion HCl [Wellbutrin XL] 300 mg tablet extended release 24 hr 300 mg PO QAM Qty: 30 RF: 5 bupropion HCl [Wellbutrin XL] 150 mg tablet extended release 24 hr 150 mg PO QAM Qty: 30 RF: 5 sertraline 100 mg tablet 100 mg PO DAILY Qty: 30 RF: 5 lidocaine HCl [Xylocaine] 10 mg/mL (1 %) solution 1 ml IM ONCE Qty: 1 RF: 0 betamethasone acet,sod phos 6 mg/mL suspension 6 mg IM ONCE Qty: 1 RF: 0 ceftriaxone 1 gram recon soln 1 g IM ONCE Qty: 1 RF: 0 cholecalciferol (vitamin D3) 1,250 mcg (50,000 unit) capsule 50,000 unit PO .week 90 Days Qty: 12 RF: 2 cyclobenzaprine 5 mg tablet 5 mg PO BID PRN (Reason: muscle spasm) 30 Days Qty: 60 RF: 0 pantoprazole 40 mg tablet,delayed release (DR/EC) 40 mg PO DAILY Qty: 90 RF: 3 prednisone 10 mg tablet 10 mg PO DAILY Qty: 90 RF: 1 acetaminophen [Tylenol Extra Strength] 500 mg tablet 500 mg PO Q6H PRNRF: 0 ceftriaxone 1 gram recon soln 1 g IM ONCE Qty: 1 RF: 0 dexamethasone sodium phosphate 10 mg/mL solution 10 mg IM ONCE Qty: 1 RF: 0 doxycycline monohydrate 100 mg capsule 100 mg PO BID 10 Days Qty: 20 RF: 0 methotrexate sodium 2.5 mg tablet 15 mg PO .week Qty: 30 RF: 3 folic acid 1 mg tablet 1 mg PO .once daily Qty: 90 RF: 3 lisinopril 40 mg tablet See Rx Instructions .ROUTE .COMPLEX Qty: 30 RF: 5 gabapentin 300 mg capsule See Rx Instructions PO TID Qty: 90 RF: 3 metoprolol tartrate 50 mg tablet See Rx Instructions .ROUTE .COMPLEX Qty: 60 RF: 3 levothyroxine 88 mcg tablet See Rx Instructions .ROUTE .COMPLEX Qty: 30 RF: 2 Referrals: DARYN Betancourt, [employer] [Primary Care Provider] - Patient Instructions: Abdominal Pain (ED) Coding Level of Care Code ED Trade Promotion Analyst for Chg Fwd Exam Comprehensive
[2021-03-09] MEDS: pantoprazole 40 mg SDV IVP (20:34)
[2021-03-09] MEDS: lidocaine 2% viscous 15 ML, aluminum-mag hydrox-simethicon 30 ML, sucralfate oral liq 1 GM PO (20:34)
[2021-03-09] MEDS: ondansetron 2 mg/ML SDV 2 mL 4 MG IVP (20:43)
[2021-03-09 20:47] LABS: Basophils % 0.5 %; Eosinophils % 0.7 %; Hematocrit 43.2 % (42.0-52.0); Hemoglobin 14.3 g/dL (11.7-16.6); Lymphocytes # 0.5 10^3/uL (0.8-4.8); Lymphocytes % 11.4 %; Mean Corpuscular HGB Conc 33.1 g/dL (30.0-36.0); Mean Corpuscular Hemoglobin 28.4 pg (28.0-34.0); Mean Corpuscular Volume 85.9 fl (80-94); Mean Platelet Volume 8.8 fL (7.4-10.4); Monocytes # 0.5 10^3/uL (0.2-0.9); Monocytes % 11.4 %; Neutrophils # 2.98 10^3/uL (1.8-7.7); Neutrophils % 72.4 %; Nucleated Red Blood Cells % 0 %; Platelet Count 107 10^3/cmm (130-400); Red Blood Count 5.03 10^6/uL (4.1-5.3); White Blood Count 4.1 10^3/uL (4.0-10.0)
[2021-03-09 21:02] LABS: Troponin(5th) Baseline 17 ng/L (0-15)
[2021-03-09 21:05] LABS: Alanine Aminotransferase 15 U/L (0-41); Albumin Level 3.9 g/dL (3.5-5.2); Alkaline Phosphatase 97 IU/L (40-130); Anion Gap 18.4 (5-19); Aspartate Amino Transferase 23 U/L (0-40); Blood Urea Nitrogen 17 mg/dL (6-20); Calcium 7.9 mg/dL (8.5-10.5); Carbon Dioxide 20 mmol/L (22-29); Chloride 101 mmol/L (98-107); Globulin 2.4 g/dL (1.3-4.6); Glomerular Filtration Rate 63.1 mL/min (90-130); Glucose 106 mg/dL (65-115); Lipase 51 U/L (13-60); Osmolality Calculated 284 mOsm/kg (285-295); Potassium 3.4 mmol/L (3.5-5.1); Sodium 136 mmol/L (136-145); Total Bilirubin 0.6 mg/dL (0.15-1.2); Total Protein 6.3 g/dL (6.6-8.7)
--- NOTE | 2021-03-09 21:17 | CTR_ITS ---
PROCEDURE INFORMATION: Exam: CT Abdomen And Pelvis With Contrast Exam date and time: 03/09/2021 9:17 PM Age: 55 years old Clinical indication: Abdominal pain; Localized; Prior surgery; Surgery date: 6+ months; Surgery type: Gb; Patient HX: C/O upper abd pain, fever and diarrhea x 3 days; Additional info: Upper abd pain, h/o cholecystectomy TECHNIQUE: Imaging protocol: Computed tomography of the abdomen and pelvis with contrast. Radiation optimization: All CT scans at this facility use at least one of these dose optimization techniques: automated exposure control; mA and/or kV adjustment per patient size (includes targeted exams where dose is matched to clinical indication); or iterative reconstruction. Contrast material: OMNI 300; Contrast volume: 95 ml; Contrast route: INTRAVENOUS (IV); COMPARISON: CT Abdomen/Pelvis Renal [id number] 08/20/2015 2:15 PM RADIATION DOSE METRICS: Total DLP (mGy-cm): 1769.03 FINDINGS: Liver: Normal. No mass. Gallbladder and bile ducts: Stable cholecystectomy. Pancreas: Normal. No ductal dilation. Spleen: 16.1 cm moderate splenomegaly. Adrenal glands: Normal. No mass. Kidneys and ureters: Normal. No hydronephrosis. Stomach and bowel: Unremarkable. No obstruction. No mucosal thickening. Appendix: No evidence of appendicitis. Intraperitoneal space: Unremarkable. No free air. No significant fluid collection. Vasculature: Unremarkable. No abdominal aortic aneurysm. Lymph nodes: Unremarkable. No enlarged lymph nodes. Urinary bladder: Unremarkable as visualized. Reproductive: Nonspecific prostate calcifications. Bones/joints: Large flowing multilevel hypertrophic vertebral body osteophytes consistent with diffuse idiopathic skeletal hyperostosis (DISH) syndrome. Soft tissues: Unremarkable. CT/CT abdomen pelvis w con* [id number] IMPRESSION: 1. Stable cholecystectomy. 2. 16.1 cm moderate splenomegaly. 3. No acute findings.
[2021-03-09 21:37] LABS: Bilirubin Urine Neg (Negative); Blood Urine 2+ (Negative); Glucose Urine UA Norm (Normal); Ketones Urine Negative (Negative); Leukocyte Esterase Urine Negative (Negative); Nitrate Urine Negative (Negative); Protein Urine Trace (Negative); Urine Appearance Clear (CLEAR); Urine Color Yellow (Yellow); Urobilinogen Urine 1 mg/dL (Negative); pH Urine 5 (5-7)
[2021-03-09] MEDS: iohexol 300 mg/mL 100 mL Btl IV (21:42)
[2021-03-09 21:43] LABS: Add Urine Culture? No; Bacteria Urine TRACE /hpf; Hyaline Casts Urine 0-4 /lpf; Mucus Urine 1+ /hpf; RBC Urine 0-4 /hpf (0-2); Squamous Epithelial Cell Urine 0-4 /hpf (0-5); WBC Urine 0-4 /hpf (0-5)
--- NOTE | 2021-03-09 21:56 | ECG_ITS ---
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
[2021-03-09 22:44] LABS: Troponin 5 2HR 17.35 ng/L (0-15); Troponin 5 2HR Delta 0.35 ABS# (0-10)
[2021-03-09] MEDS: sucralfate 1 gm Tablet PO (23:26)
[2021-03-09] MEDS: TRAMadol 50 mg Tablet PO (23:27)
== END 2021-03-09 23:28 | disposition home or self-care (01) ==
PROVIDERS: Emergency Provider Family Medicine; PCP Nurse Practitioner Family
DX: R10.13 Epigastric pain (principal); D69.6 Thrombocytopenia, unspecified; D73.1 Hypersplenism; I10 Essential (primary) hypertension; E78.2 Mixed hyperlipidemia
CPT/HCPCS: 71045; 74018; 74177; 80053; 81001; 83690; 84484; 85025; 87040; 93005; 96374; 96375; 99283; C9113; J2405; Q9967

== ENCOUNTER → 2021-03-13 13:49 | Outpatient (BNVA) | payer BC, SELFPAY | PROVIDERS: PCP Nurse Practitioner Family; Visit Provider Internal Medicine | DX: Z01.812 Encounter for preprocedural laboratory examination (principal); R10.11 Right upper quadrant pain | CPT/HCPCS: 87635 ==

== ENCOUNTER 2021-03-18 06:43 | Day surgery (SDC) | payer BC, SELFPAY ==
[2021-03-14 14:03] VITALS: BMI 42.2
[2021-03-18 07:14] VITALS: BP 142/90; PULSE 70; RESP 18; TEMP 36.6; O2SAT 97
--- NOTE | 2021-03-18 07:17 | ANES.PREANE2 ---
Pre-Anesthetic Assessment Pre-Anesthetic Assessment: Height/Weight: Height 1.85 m Weight 145.15 kg Temp Pulse Resp BP Pulse Ox 97.8 F 70 18 142/90 97 03/18/21 07:14 03/18/21 07:14 03/18/21 07:14 03/18/21 07:14 03/18/21 07:14 Preop Diagnosis: Epig pain Proposed Procedure: Operation Date: 03/18/21 07:15 Proposed Procedures p EGD 91975 R10.11(Not Applicable) - Darrick Norman MD Was Beta James taken within 24 hours: Yes Last intake: Intake Last Liquid Date 03/17/21 Last Liquid Time 20:30 Last Solid Date 03/17/21 Last Solid Time 20:30 Social: Social History: No alcohol and No tobacco Exam: Pre-Anes Outpt Exam: alert, oriented x 3 and clear to auscultation bilaterally Airway: Submandibular: WNL Cervical ROM: Other (very por extension. Good mouth opening) MP: 2 Dentition: Full History/ROS: No significant history except as noted and No significant complaints Pulmonary: Pulmonary: None reported CV/HEM: CV/HEM: HTN : : None reported Hepatic: Hepatic: None reported GI: GI: GERD Metabolic: Metabolic: Morbid obesity Musc/skel: Musc/skel: OA/DJD Comments: Ankylosing spondylitis Neuropsych: Neuropsych: None reported Anesthetic Plan: ASA status: 3 Anesthesia: Anesthesia Evaluation and MAC Risk of > 500 ml blood loss (7ml/kg in children): No PFSH Anesthesia PFSH: Medical History (Updated 03/17/21 @ 00:00 by ) Abdominal pain in male Ankylosing spondylitis Axial spondyloarthritis Barretts esophagus Last EGD August 2018 - to repeat in 3 years Changing pigmented skin lesion Chest pain Colon polyps Last Colonoscopy 2020, repeat in 5 years - Due 2025 DISH (diffuse idiopathic skeletal hyperostosis) Fatigue Hand strain High risk medication use Hypertension Hypomagnesemia Hypothyroid Immunization counseling Inflammatory arthritis Inflammatory back pain Medication management Mixed hyperlipidemia Morbid obesity with BMI of 40.0-44.9, adult Nausea Neck pain Obstructive sleep apnea Osteoarthritis Prostate cancer screening Psychiatric care Rib pain on right side [place] tick fever Sacroiliitis Sinusitis Sinusitis, acute Sinusitis, acute Skin sore Spleen enlargement Tick bite Vitamin D deficiency Surgical History H/O esophagogastroduodenoscopy EGD August 2018 repeat in 3 years (August 2021) H/O nasal sinusotomy Hx of cholecystectomy Social History Smoking and tobacco status: never smoked Alcohol intake: never Marital status: service: No History of recent travel: No Data Anesthesia Cardiac Studies: No Data to Display
[2021-03-18] MEDS: sodium chloride 0.9% 1,000 ML 30 ML IV (07:28)
--- NOTE | 2021-03-18 07:28 | P.HP_ITS ---
Same Day Surgery H&P Indication for Procedure/HPI DATE OF PROCEDURE: March 18, 2021 CHIEF COMPLAINT/INDICATIONFOR SURGICAL PROCEDURE: Postprandial abdominal postprandial abdominal pain PREOP DIAGNOSIS: Epig pain PLANNED PROCEDURE: Operation Date: 03/18/21 07:15 Proposed Procedures p EGD 67094 R10.11(Not Applicable) - Darrick Norman MD Medications/Allergies* Home Medications Medication Instructions Recorded Confirmed Type hydrochlorothiazide 12.5 mg capsule 12.5 mg PO QAM 02/28/19 03/14/21 History sumatriptan succinate 100 mg tablet 100 mg PO ONCE PRN 02/28/19 03/18/21 History acetaminophen 500 mg tablet 500 mg PO Q6H PRN 03/20/20 03/18/21 History levothyroxine 88 mcg PO DAILY 03/14/21 03/14/21 History lisinopril 40 mg PO DAILY 03/14/21 03/14/21 History metoprolol tartrate 50 mg PO BID 03/14/21 03/14/21 History Allergies/Adverse Reactions Allergy/AdvReac Type Severity Reaction Status Date / Time nalbuphine [From Nubain] Allergy Unconscious Verified 03/14/21 13:53 codeine AdvReac ADR-Nausea Verified 03/14/21 13:53 hydrocodone [From Lortab] AdvReac ADR-Nausea Verified 03/14/21 13:53 sulfamethoxazole AdvReac ADR-Nausea Verified 03/14/21 13:53 [From Bactrim] trimethoprim [From Bactrim] AdvReac ADR-Nausea Verified 03/14/21 13:53 Current Medications: Generic Name Dose Route Start Last Admin Trade Name Freq PRN Reason Stop Dose Admin Sodium Chloride 1,000 mls @ 30 mls/hr 03/18/21 07:00 03/18/21 07:28 Sodium Chloride 0.9% IV 30 mls/hr .Q24H AYAKA Administration Pertinent History/Comorbid Conditions* Medical History (Updated 03/17/21 @ 00:00 by ) Abdominal pain in male Ankylosing spondylitis Axial spondyloarthritis Barretts esophagus Last EGD August 2018 - to repeat in 3 years Changing pigmented skin lesion Chest pain Colon polyps Last Colonoscopy 2020, repeat in 5 years - Due 2025 DISH (diffuse idiopathic skeletal hyperostosis) Fatigue Hand strain High risk medication use Hypertension Hypomagnesemia Hypothyroid Immunization counseling Inflammatory arthritis Inflammatory back pain Medication management Mixed hyperlipidemia Morbid obesity with BMI of 40.0-44.9, adult Nausea Neck pain Obstructive sleep apnea Osteoarthritis Prostate cancer screening Psychiatric care Rib pain on right side [place] tick fever Sacroiliitis Sinusitis Sinusitis, acute Sinusitis, acute Skin sore Spleen enlargement Tick bite Vitamin D deficiency Surgical History (Updated 10/31/19 @ 15:25 by HENRIETTA Osorio) H/O esophagogastroduodenoscopy EGD August 2018 repeat in 3 years (August 2021) H/O nasal sinusotomy Hx of cholecystectomy Social History Smoking and tobacco status: never smoked Alcohol intake: never Marital status: service: No History of recent travel: No Pertinent Exam Findings alert, oriented x 3, clear to auscultation bilaterally, regular rate & rhythm, operative site marked and procedure specific exam findings Recommendations Surgery/Procedure today Coding Level of Care Code Acute Admissions Counselor for Nicole Lowery
[2021-03-18 08:19] VITALS: BP 147/97; PULSE 78; RESP 16; TEMP 36.6; O2SAT 97
--- NOTE | 2021-03-18 08:26 | ANE.PACU2 ---
Inpatient post-anesthesia follow up: Airway intact: Yes Vital signs: Temperature 97.8 F Pulse Rate 78 Respiratory Rate 16 Blood Pressure 147/97 Pulse Oximetry 97 Oxygen Delivery Me thod Room Air Oxygen Flow Rate Fraction of Inspir ed Oxygen Hydration adequate: Yes Nausea and vomiting: No Pain level: 1 Mental status: Baseline
[2021-03-18 08:32] VITALS: BP 143/86; PULSE 71; RESP 18; TEMP 36.6; O2SAT 96
[2021-03-19 06:05] LABS: H. Pylori / CLO Test Negative
== END 2021-03-18 08:57 | disposition home or self-care (01) ==
PROVIDERS: PCP Nurse Practitioner Family; Visit Provider Internal Medicine
PROC: 0DJ08ZZ Inspection of Upper Intestinal Tract, Via Natural or Artificial Opening Endoscopic (ICD-10-PCS; CPT 43235; principal; 2021-03-18 07:15)
DX: R10.13 Epigastric pain (principal); K22.70 Barrett's esophagus without dysplasia; K29.70 Gastritis, unspecified, without bleeding; K31.7 Polyp of stomach and duodenum; I10 Essential (primary) hypertension; K21.9 Gastro-esophageal reflux disease without esophagitis; E66.01 Morbid (severe) obesity due to excess calories; Z68.41 Body mass index [BMI] 40.0-44.9, adult; G47.33 Obstructive sleep apnea (adult) (pediatric)
CPT/HCPCS: 43239; 87077; 88305; 88342; J2704; J7030

== ENCOUNTER → 2021-05-15 10:29 | Outpatient (BNVA) | payer BC, SELFPAY | PROVIDERS: PCP Nurse Practitioner Family; Visit Provider Psychiatry & Neurology Psychiatry | DX: F33.2 Major depressive disorder, recurrent severe without psychotic features (principal); Z79.899 Other long term (current) drug therapy | CPT/HCPCS: 82040; 84270; 84403; 84439; 84443; 84481 ==

== ENCOUNTER → 2021-05-24 10:59 | Outpatient (BNVA) | payer BC, SELFPAY | PROVIDERS: PCP Nurse Practitioner Family; Visit Provider Psychiatry & Neurology Psychiatry | DX: F33.2 Major depressive disorder, recurrent severe without psychotic features (principal); Z79.899 Other long term (current) drug therapy; G47.33 Obstructive sleep apnea (adult) (pediatric) | CPT/HCPCS: 80061; 83036 ==

== ENCOUNTER → 2021-06-25 11:36 | Outpatient (BNVA) | payer BC, SELFPAY | PROVIDERS: PCP Nurse Practitioner Family; Visit Provider Internal Medicine Rheumatology | DX: M19.90 Unspecified osteoarthritis, unspecified site (principal); M46.1 Sacroiliitis, not elsewhere classified; M46.90 Unspecified inflammatory spondylopathy, site unspecified; M48.10 Ankylosing hyperostosis [Forestier], site unspecified; M54.89 Other dorsalgia; Z79.899 Other long term (current) drug therapy | CPT/HCPCS: 36415; 80076; 82565; 85025; 86140 ==

== ENCOUNTER → 2021-09-04 14:26 | Outpatient (BNVA) | payer BC, SELFPAY | PROVIDERS: Visit Provider Podiatrist Foot & Ankle Surgery | DX: M79.672 Pain in left foot (principal) | CPT/HCPCS: 73630 ==

== ENCOUNTER → 2021-09-30 15:31 | Outpatient (BNVA) | payer BC, SELFPAY | PROVIDERS: PCP Nurse Practitioner Family; Visit Provider Nurse Practitioner Family | DX: G43.909 Migraine, unspecified, not intractable, without status migrainosus (principal); M19.90 Unspecified osteoarthritis, unspecified site; Z79.899 Other long term (current) drug therapy | CPT/HCPCS: 80076; 82565; 85025; 86140 ==

== ENCOUNTER → 2021-11-26 14:49 | Outpatient (BNVA) | payer BC, SELFPAY | PROVIDERS: Visit Provider Podiatrist Foot & Ankle Surgery | DX: S86.012A Strain of left Achilles tendon, initial encounter (principal); X58.XXXA Exposure to other specified factors, initial encounter | CPT/HCPCS: 73630 ==

== ENCOUNTER 2021-11-26 15:54 | Outpatient (CLI) | payer BC, SELFPAY | END 2021-11-26 15:55 | disposition home or self-care (01) | LOC: SPT 15:55 | PROVIDERS: Visit Provider Podiatrist Foot & Ankle Surgery | DX: Z46.89 Encounter for fitting and adjustment of other specified devices (principal); S86.012D Strain of left Achilles tendon, subsequent encounter; X58.XXXD Exposure to other specified factors, subsequent encounter | CPT/HCPCS: 97760; L4361 ==

== ENCOUNTER 2021-12-24 15:17 | Outpatient (CLI) | payer BC, SELFPAY ==
--- NOTE | 2021-12-24 15:15 | MR_ITS ---
WS: [id number] MRI LEFT FOOT without CONTRAST. COMPARISON: 11/26/2021 Multiplanar, multisequence imaging is performed without contrast. Mild thickening of the distal Achilles tendon. Increased T2 striations within the distal tendon exten ding over 4 cm. Increased signal within the central tendon with a very small insertional intrasubstan ce tear laterally. There is a small amount of fluid in the retrocalcaneal bursa. Mildly prominent pos terior calcaneal osseous prominence without marrow edema. There is a small amount of marrow edema in the very posterior calcaneus. This is at the site of the Achilles insertion and enthesopathy. Increase fluid surrounding the flexor hallucis longus tendon beginning posterior to the tibiotalar maicol int space and extending distally. A small amount of fluid in the tendon sheath is normal. The fluid b ecomes lobulated and increased along the distal tendon which is consistent with tenosynovitis. No tea r identified. Peroneal tendon sheath is normal. No increase fluid in the tendons are normal. Mild osteoarthritic changes involving the visualized midfoot. No fractures. MR/MR foot LT wo con* [id number] IMPRESSION: 1. No full-thickness Achilles tendon tear. Mucoid degeneration with insertiona l tendinopathy and a small intrasubstance tear in the lateral tendon. 2. Mild retrocalcaneal bursitis. 3. Tenosynovitis flexor hallucis longus tendon. 4. Marrow edema in the posterior plantar surface of the calcaneus.
== END 2021-12-24 15:18 | disposition home or self-care (01) ==
PROVIDERS: PCP Nurse Practitioner Family; Visit Provider Podiatrist Foot & Ankle Surgery
DX: S86.002A Unspecified injury of left Achilles tendon, initial encounter (principal); X58.XXXA Exposure to other specified factors, initial encounter; S96.812A Strain of other specified muscles and tendons at ankle and foot level, left foot, initial encounter; M76.62 Achilles tendinitis, left leg; M65.9 Synovitis and tenosynovitis, unspecified; R93.6 Abnormal findings on diagnostic imaging of limbs
CPT/HCPCS: 73718

== ENCOUNTER → 2022-05-16 10:27 | Outpatient (BNVA) | payer BC, SELFPAY | PROVIDERS: Visit Provider Psychiatry & Neurology Psychiatry | DX: F33.42 Major depressive disorder, recurrent, in full remission (principal); G47.33 Obstructive sleep apnea (adult) (pediatric); Z79.899 Other long term (current) drug therapy | CPT/HCPCS: 80061; 83036 ==

== ENCOUNTER → 2022-08-15 08:39 | Outpatient (BNVA) | payer BC, SELFPAY | PROVIDERS: PCP Nurse Practitioner; Visit Provider Nurse Practitioner | DX: Z79.899 Other long term (current) drug therapy (principal) | CPT/HCPCS: 80048 ==

== ENCOUNTER 2022-10-30 11:53 | Outpatient (CLI) | payer BC, SELFPAY ==
[2022-10-30 12:13] LABS: Basophils # 0.1 10^3/uL (0.0-0.1); Basophils % 0.9 %; Eosinophils # 0.2 10^3/uL (0.0-0.8); Eosinophils % 2.1 %; Hematocrit 45.7 % (37-53); Lymphocytes # 1.9 10^3/uL (0.8-4.8); Lymphocytes % 25.9 %; Mean Corpuscular HGB Conc 33.5 g/dL (30-55); Mean Corpuscular Hemoglobin 29.3 pg (27-33); Mean Corpuscular Volume 87.4 fl (82-101); Mean Platelet Volume 8.9 fL (7.4-10.4); Monocytes # 0.7 10^3/uL (0.2-0.9); Monocytes % 9.9 %; Neutrophils # 4.53 10^3/uL (1.8-7.7); Neutrophils % 60.4 %; Nucleated Red Blood Cells % 0 %; Platelet Count 158 10^3/cmm (157-399); Red Blood Count 5.23 10^6/uL (3.85-5.65); Red Cell Distribution Width 13.1 % (12.1-15.1)
[2022-10-30 12:45] LABS: Alanine Aminotransferase 11 U/L (0-41); Albumin Level 4.1 g/dL (3.5-5.2); Alkaline Phosphatase 112 U/L (40-130); Aspartate Amino Transferase 17 U/L (0-40); Globulin 3.2 g/dL (1.3-4.6); Glomerular Filtration Rate 62.6 mL/min (90-130); Total Bilirubin 0.3 mg/dL (0.15-1.2); Total Protein 7.3 g/dL (6.6-8.7)
== END 2022-10-30 11:54 | disposition home or self-care (01) ==
LOC: LAB 11:55
PROVIDERS: PCP Nurse Practitioner; Visit Provider Internal Medicine Rheumatology
DX: M19.90 Unspecified osteoarthritis, unspecified site (principal)
CPT/HCPCS: 36415; 80076; 82565; 85025; 86140

== ENCOUNTER → 2023-03-05 12:55 | Outpatient (BNVA) | payer BC, SELFPAY | PROVIDERS: PCP Nurse Practitioner Family; Visit Provider Internal Medicine Rheumatology | DX: Z79.899 Other long term (current) drug therapy (principal); M46.90 Unspecified inflammatory spondylopathy, site unspecified; M19.90 Unspecified osteoarthritis, unspecified site | CPT/HCPCS: 36415; 80076; 82565; 85025; 86140 ==

== ENCOUNTER → 2023-06-25 13:37 | Outpatient (BNVA) | payer BC, SELFPAY | PROVIDERS: PCP Nurse Practitioner Family; Visit Provider Internal Medicine Rheumatology | DX: Z79.899 Other long term (current) drug therapy (principal); M19.90 Unspecified osteoarthritis, unspecified site; M46.90 Unspecified inflammatory spondylopathy, site unspecified | CPT/HCPCS: 36415; 80076; 82565; 85025; 86140 ==

== ENCOUNTER → 2023-12-31 13:15 | Outpatient (BNVA) | payer BC, SELFPAY | PROVIDERS: PCP Nurse Practitioner Family; Visit Provider Internal Medicine Rheumatology | DX: M46.90 Unspecified inflammatory spondylopathy, site unspecified (principal); Z79.899 Other long term (current) drug therapy | CPT/HCPCS: 36415; 80076; 82565; 85025; 85651; 86140 ==

== ENCOUNTER → 2024-06-30 14:20 | Outpatient (BNVA) | payer BC, SELFPAY | PROVIDERS: PCP Nurse Practitioner Family; Visit Provider Internal Medicine Rheumatology | DX: M54.89 Other dorsalgia (principal); Z79.899 Other long term (current) drug therapy; M45.9 Ankylosing spondylitis of unspecified sites in spine | CPT/HCPCS: 36415; 80076; 82565; 85025; 85651; 86140 ==

== ENCOUNTER → 2024-07-20 14:11 | Outpatient (BNVA) | payer BC, SELFPAY | PROVIDERS: PCP Nurse Practitioner Family; Visit Provider Nurse Practitioner Family | DX: Z79.899 Other long term (current) drug therapy (principal); I10 Essential (primary) hypertension; E78.2 Mixed hyperlipidemia; E03.9 Hypothyroidism, unspecified; E55.9 Vitamin D deficiency, unspecified; Z12.5 Encounter for screening for malignant neoplasm of prostate | CPT/HCPCS: 80053; 80061; 81003; 82306; 83036; 84439; 84443; 86376; G0103 ==

== ENCOUNTER → 2024-11-21 11:44 | Outpatient (BNVA) | payer BC, SELFPAY | PROVIDERS: PCP Nurse Practitioner Family; Visit Provider Nurse Practitioner Family | DX: M54.89 Other dorsalgia (principal); Z79.899 Other long term (current) drug therapy; I10 Essential (primary) hypertension; E03.9 Hypothyroidism, unspecified; E78.2 Mixed hyperlipidemia | CPT/HCPCS: 80053; 80076; 83036; 84443; 85025; 85651; 86140 ==